=== PATIENT | male | born 1950 | race Caucasian/White ===

== ENCOUNTER 2018-08-10 17:53 | Emergency (ER) | payer MEDICARE ==
[2018-08-10] MEDS ORDERED: predniSONE 20 MG TAB ONE (18:15)
== END 2018-08-10 18:21 | disposition home or self-care (01) ==
LOC: ERS 17:53
DX: J32.9 Chronic sinusitis, unspecified (principal); E78.5 Hyperlipidemia, unspecified
CPT/HCPCS: 99283; J7506

== ENCOUNTER 2019-06-15 09:47 | Outpatient (CLI) | payer MEDICARE ==
--- NOTE | 2019-06-16 08:26 | MRI ---
MRI Pelvis W WO Con History: Elevated PSA Comparison: None. Findings: Multiplanar multisequence MRI of the pelvis was performed using prostate protocol. Exam was reviewed on an independent 3-D workstation. Prostate measures 5.4 x 5 x 5.7 cm for a volume of 78.3 cc. Peripheral zone: No abnormal foci of focal markedly hypointense signal on ADC or hyperintense signal on DWI. Transitional zone: Extending from the base to the mid gland from 1:00-3:00 is a 2.6 x 1.2 x 1 cm mass with heterogeneous signal intensity with obscured margins without markedly hypointense signal on ADC or markedly hyperintense signal on DWI. The ADC signal is moderately hyperintense and the DWI sig nal is mildly hyperintense. There is, however, focal areas of internal type III kinetics. This is annotated on the [employer] CAD software. Neurovascular bundles: Intact Prostatic capsule: Intact Lymph nodes: No pelvic adenopathy. Bones: On the T1 weighted imaging sequence there are no abnormal foci of marrow signal replacement. Intrapelvic soft tissues: Normal Impression: 1. PI-RADS Category 3: Indeterminant (clinically significant cancer equivocal). This is within the le ft transitional zone from the base to the mid gland from 1:00 - 3:00 as described in the findings section. Lesion is marked on the [employer] CAD software. 2. Enlarged prostate with volume of 78.3 cc. 3. Intact neurovascular bundles and prostatic capsule. 4. No adenopathy or abnormal marrow signal.
== END 2019-06-15 09:48 | disposition home or self-care (01) ==
LOC: TBSIIMAG 09:47
PROVIDERS: ATTEND Urology
DX: R97.20 Elevated prostate specific antigen [PSA] (principal); N40.0 Benign prostatic hyperplasia without lower urinary tract symptoms
CPT/HCPCS: 72197; 82565

== ENCOUNTER 2019-07-21 06:28 | Outpatient (CLI) | payer MEDICARE ==
--- NOTE | 2019-07-21 11:07 | RAD ---
EXAM: Chest Two Views 07/21/2019 11:05 AM HISTORY: Preop COMPARISON: None. FINDINGS: Heart: Normal in size and contour. Pulmonary vessels: Normal. Costophrenic angles: Clear. Lungs: No acute airspace consolidation. Pneumothorax: None. Osseous structures:Intact. Additional findings: None. IMPRESSION: No significant acute intrathoracic disease.
[2019-07-21 11:14] LABS: #Basophils 0.1 thou/uL (0.0-0.2); #Eosinphils 0.9 thou/uL (0.0-0.7); #Lymphocytes 1.6 thou/uL (1.20-3.40); #Monocytes 0.5 thou/uL (0.11-0.59); #Neutrophils 3.7 thou/uL (1.40-6.50); %Basophils 0.8 % (0.0-1.0); %Eosinophils 12.7 % (0.0-10.0); %Lymphocytes 23.8 % (21.0-51.0); %Monocytes 7.4 % (0.0-10.0); %Neutrophils 55.3 % (42.0-75.0); Hemoglobin 14.3 g/dL (14.0-18.0); Mean Corpuscular HGB CONC 34.1 g/dL (32.0-36.0); Mean Corpuscular Hemoglobin 31.1 pg (27.0-31.0); Mean Corpuscular Volume 91.2 fL (78.0-98.0); Mean Platelet Volume 8.4 fL (7.4-10.4); Platelet Count 213 thou/uL (130-400); RBC Distribution Width 12.1 % (11.5-14.5); Red Blood Cell (RBC) Count 4.61 mill/uL (4.70-6.10); White Blood Cell (WBC) Count 6.8 thou/uL (4.8-10.8)
[2019-07-21 11:22] LABS: Bacteria/HPF None Seen HPF (None Seen); Bilirubin Negative (Negative); Blood, Urine Negative (Negative); Clarity Clear (Clear); Glucose, Urine (Dipstick) Normal (Negative); Leukocyte Negative Leu/uL (Negative); Nitrite Negative (Negative); Protein, Urine (Dipstick) Negative (Neg-Trace); RBC/HPF None Seen HPF (0-3); Squamous Epithelial None Seen HPF (0-3); Urobilinogen Normal mg/dL (Less than 2); WBC/HPF 0-3 HPF (0-3)
[2019-07-21 11:31] LABS: Anion Gap 13 mmol/L (10-20); BUN (Urea Nitrogen) 14 mg/dL (8.4-25.7); Calc. Creatinine Clearance 0 mL/min (70-130); Calcium 9.5 mg/dL (7.8-10.44); Carbon Dioxide 27 mmol/L (23-31); Chloride 103 mmol/L (98-107); Estimated GFR-MDRD 71; Glucose 108 mg/dL (80-115); Potassium 4.5 mmol/L (3.5-5.1); Sodium 138 mmol/L (136-145)
[2019-07-21 11:37] LABS: PTT 28.7 SEC (22.9-36.1)
[2019-07-21 11:38] LABS: INR-International Normal Ratio 0.9; Prothrombin Time 12.2 SEC (12.0-14.7)
--- NOTE | 2019-07-22 17:56 | EKG ---
Test Reason : Blood Pressure : / mmHG Vent. Rate : 087 BPM Atrial Rate : 087 BPM P-R Int : 128 ms QRS Dur : 082 ms QT Int : 348 ms P-R-T Axes : 067 089 033 degrees QTc Int : 418 ms Sinus rhythm with Premature ventricular complexes or Fusion complexes Otherwise normal ECG No previous ECGs available Confirmed by Ben AVILES ([id number]) on 07/22/2019 5:55:40 PM Referred By: GIBSON Confirmed By:Ben AVILES
== END 2019-07-21 06:29 | disposition home or self-care (01) ==
LOC: LABBT 06:28
PROVIDERS: ATTEND Urology
DX: Z01.818 Encounter for other preprocedural examination (principal); N40.0 Benign prostatic hyperplasia without lower urinary tract symptoms
CPT/HCPCS: 71046; 80048; 81001; 85025; 85610; 85730; 93005; 93010

== ENCOUNTER 2019-07-28 06:26 | Day surgery (SDC) | payer MEDICARE ==
[2019-07-21 10:21] VITALS: BMI 23.6
[2019-07-28] MEDS ORDERED: cefTRIAXone\\ROCEPHIN 1 GM VIAL ONE (08:04)
[2019-07-28] MEDS ORDERED: Sodium Chloride 0.9% 100 ML ONE (08:11)
[2019-07-28] MEDS ORDERED: Lidocaine 2% PF 5 ML VIAL ONE (09:15)
[2019-07-28] MEDS ORDERED: Midazolam HCl 2 mg/2 ml Vial ONE (09:19)
[2019-07-28] MEDS ORDERED: Fentanyl 100 MCG/2 ML VIAL ONE (09:19)
[2019-07-28] MEDS ORDERED: Milrinone 10 MG/10 ML VIAL ONE (09:19)
[2019-07-28] MEDS ORDERED: Propofol 500 MG/50 ML VIAL ONE (09:19)
--- NOTE | 2019-07-28 11:36 | OP ---
DATE OF PROCEDURE: 07/28/2019 SERVICE: Urology. PREOPERATIVE DIAGNOSIS: Elevated PSA. POSTOPERATIVE DIAGNOSIS: Elevated PSA. PROCEDURE PERFORMED: MRI fusion transrectal ultrasound-guided prostate biopsy using the [employer]Nav system. INDICATION FOR PROCEDURE: Mr. Conn is a 69-year-old white male with elevated PSA, who has had two prior negative biopsies. His PSA has continued to rise. We got an MRI of the prostate, which demonstrated a BI-RADS 3 lesion. We elected to go for MRI fusion biopsy with all risks and benefits discussed. He has agreed to proceed forward. DESCRIPTION OF PROCEDURE: After identification of armband and verification of consent, the patient was brought back to the operating room, where he underwent total intravenous anesthesia. He was then left in the left lateral decubitus position and positioned into the UroNav system. Fusion process was carried out under the sedation until the prostate was well-matched with the MRI imaging. This did bring up a nice match between the MRI imaging and the ultrasound. Full measurements of the prostate demonstrated a 79.6 mL prostate volume, width being 5.3 cm, height being 5.0 cm, and length being 5.7 cm. Once fusion was carried out, biopsies were taken of the region of interest on the BI-RADS 3 lesion for a total of 8 cores taken, 5 were directly through the lesion and the remaining 3 were in the surrounding region. An additional 12-core standard biopsy template was taken, but all biopsies were taken on the anterior prostate by pushing the needle through the posterior aspect and then biopsy in the anterior aspect, since he has had 2 prior biopsies most likely of the posterior aspect of the prostate already. Upon completion, there was minimal bleeding noted. The ultrasound probe was removed. The patient was returned back to the supine position, awakened and taken to Day Stay for recovery. ESTIMATED BLOOD LOSS: Minimal. COMPLICATIONS: None. SPECIMENS: Prostate biopsies. RETAINED TUBES AND DRAINS: None. DISPOSITION: The patient will be discharged to home and follow up with me in approximately 2 to 3 weeks for a postop check and for biopsy results. Job ID: [id number]
== END 2019-07-28 14:30 | disposition home or self-care (01) ==
LOC: SDC 06:26
PROVIDERS: ATTEND Urology
PROC: 0VB03ZX Excision of Prostate, Percutaneous Approach, Diagnostic (ICD-10-PCS; principal; 2019-07-28)
DX: N40.1 Benign prostatic hyperplasia with lower urinary tract symptoms (principal); N13.8 Other obstructive and reflux uropathy; R35.1 Nocturia; R39.12 Poor urinary stream; E78.00 Pure hypercholesterolemia, unspecified; J30.2 Other seasonal allergic rhinitis; Z80.42 Family history of malignant neoplasm of prostate; Z79.51 Long term (current) use of inhaled steroids; Z79.899 Other long term (current) drug therapy; Z88.0 Allergy status to penicillin
CPT/HCPCS: 88305; J0696; J2001; J2250; J2260; J2704; J3010; J3490

== ENCOUNTER 2021-06-18 13:15 | Outpatient (CLI) | payer MEDICARE | END 2021-06-18 13:16 | disposition home or self-care (01) | LOC: BICULT 13:15 | PROVIDERS: ATTEND Physician Assistant | DX: L72.0 Epidermal cyst (principal); R91.8 Other nonspecific abnormal finding of lung field ==

== ENCOUNTER 2022-08-28 07:59 | Outpatient (CLI) | payer MEDICARE | END 2022-08-28 08:00 | disposition home or self-care (01) | LOC: BICCT 07:59 | PROVIDERS: ATTEND Psychiatry & Neurology Neurology | DX: H53.2 Diplopia (principal) | CPT/HCPCS: 71270 ==

== ENCOUNTER 2023-08-23 09:27 | Inpatient (IN) | payer BC, MEDICARE ==
[2023-08-23 09:47] LABS: #Basophils 0.1 thou/uL (0.0-0.2); #Eosinphils 0.3 thou/uL (0.0-0.7); #Monocytes 0.5 thou/uL (0.11-0.59); #Neutrophils 4.1 thou/uL (1.40-6.50); %Basophils 0.9 % (0.0-1.0); %Eosinophils 4.7 % (0.0-10.0); %Lymphocytes 26.6 % (21.0-51.0); %Monocytes 6.9 % (0.0-10.0); %Neutrophils 60.6 % (42.0-75.0); Hematocrit 43.3 % (42.0-52.0); Hemoglobin 14.8 g/dL (14.0-18.0); Mean Corpuscular HGB CONC 34.2 g/dL (32.0-36.0); Mean Corpuscular Hemoglobin 30.8 pg (27.0-31.0); Mean Corpuscular Volume 90.2 fl (78.0-98.0); Platelet Count 212 10x3/uL (130-400); White Blood Cell (WBC) Count 6.8 10x3/uL (4.8-10.8)
[2023-08-23 10:11] LABS: ALT (SGPT) 21 U/L (8-55); AST (SGOT) 17 U/L (5-34); Albumin 4.2 g/dL (3.4-4.8); Alkaline Phosphatase 71 U/L (40-110); Anion Gap 13 mmol/L (10-20); BUN (Urea Nitrogen) 13 mg/dL (8.4-25.7); Bilirubin, Total 0.6 mg/dL (0.2-1.2); Calc. Creatinine Clearance 0 mL/min (70-130); Calcium 9.5 mg/dL (7.8-10.44); Carbon Dioxide 28 mmol/L (23-31); Chloride 101 mmol/L (98-107); Estimated GFR 63; Globulin 2.9 g/dL (2.4-3.5); Glucose 125 mg/dL (83-110); Lipase 13 U/L (8-78); Potassium 4.2 mmol/L (3.5-5.1); Protein, Total 7.1 g/dL (5.8-8.1); Sodium 138 mmol/L (136-145)
[2023-08-23] MEDS ORDERED: Aspirin 325 MG TAB ONE (12:00)
[2023-08-23] MEDS ORDERED: Nitroglycerin 2% Ointment 1 INCH/1 GM Packet ONE (12:20)
[2023-08-23 13:12] LABS: SARS-CoV-2 NAA Rapid Test Not Detected (NotDetected)
[2023-08-23 14:04] LABS: Bacteria/HPF None Seen HPF (None Seen); Bilirubin Negative (Negative); Blood, Urine Negative (Negative); CAUTI Indications for Culture Alt mental st,lethar; Clarity Clear (Clear); Glucose, Urine (Dipstick) Normal (Negative); Ketone, Urine Negative (Negative); Leukocyte Negative Leu/uL (Negative); Nitrite Negative (Negative); Protein, Urine (Dipstick) Negative (Neg-Trace); RBC/HPF None Seen HPF (0-3); Specific Gravity, Urine 1.008 (1.002-1.036); Squamous Epithelial None Seen HPF (0-3); Urobilinogen Normal mg/dL (Less than 2); WBC/HPF 0-3 HPF (0-3)
[2023-08-23 14:06] LABS: Urine Culture Reflex No No
[2023-08-23] MEDS ORDERED: Acetaminophen 650 MG Suppository PR PRN (14:42)
[2023-08-23] MEDS ORDERED: Ondansetron PF 4 MG/2 ML Vial IVP PRN (14:42)
[2023-08-23] MEDS ORDERED: Ondansetron ODT 4 MG TAB PO PRN (14:42)
[2023-08-23] MEDS ORDERED: Acetaminophen 325 MG TAB PO PRN (14:42)
[2023-08-23 14:58] LABS: Troponin I 0.043 ng/mL (< 0.028)
[2023-08-23 15:24] VITALS: BMI 24.3
[2023-08-23 18:15] LABS: Troponin I 0.056 ng/mL (< 0.028)
[2023-08-24] MEDS ORDERED: Nitroglycerin 0.4 MG TAB (25 Tab Bottle) SL PRN (06:02)
[2023-08-24 06:58] LABS: #Basophils 0.1 thou/uL (0.0-0.2); #Eosinphils 0.3 thou/uL (0.0-0.7); #Monocytes 0.6 thou/uL (0.11-0.59); #Neutrophils 4.9 thou/uL (1.40-6.50); %Basophils 0.6 % (0.0-1.0); %Eosinophils 4.3 % (0.0-10.0); %Lymphocytes 25.1 % (21.0-51.0); %Monocytes 7.8 % (0.0-10.0); %Neutrophils 61.9 % (42.0-75.0); Hematocrit 41.2 % (42.0-52.0); Hemoglobin 14.1 g/dL (14.0-18.0); Mean Corpuscular HGB CONC 34.2 g/dL (32.0-36.0); Mean Corpuscular Hemoglobin 31.2 pg (27.0-31.0); Mean Corpuscular Volume 91.2 fl (78.0-98.0); Mean Platelet Volume 11.3 fL (7.4-10.4); Platelet Count 193 10x3/uL (130-400); RBC Distribution Width 13.2 % (11.5-14.5); Red Blood Cell (RBC) Count 4.52 mill/uL (4.70-6.10); White Blood Cell (WBC) Count 7.9 10x3/uL (4.8-10.8)
[2023-08-24 07:13] LABS: Anion Gap 10 mmol/L (10-20); BUN (Urea Nitrogen) 14 mg/dL (8.4-25.7); Calc. Creatinine Clearance 69 mL/min (70-130); Carbon Dioxide 25 mmol/L (23-31); Chloride 104 mmol/L (98-107); Estimated GFR 76; Glucose 98 mg/dL (83-110); Potassium 4.3 mmol/L (3.5-5.1); Sodium 135 mmol/L (136-145)
[2023-08-24] MEDS ORDERED: hydrALAZINE 20 MG/ML VIAL SLOW IVP PRN (12:02)
[2023-08-24] MEDS ORDERED: Communication Order-Pharmacy FS SCH (15:15)
[2023-08-24] MEDS ORDERED: Enoxaparin 80 MG (0.8 mL) SYRINGE SC SCH (15:15)
[2023-08-24] MEDS ORDERED: Nitroglycerin 2% Ointment 1 INCH/1 GM Packet TOP SCH (16:45)
[2023-08-24 18:57] LABS: #Basophils 0.1 thou/uL (0.0-0.2); #Eosinphils 0.3 thou/uL (0.0-0.7); #Monocytes 0.9 thou/uL (0.11-0.59); #Neutrophils 7.4 thou/uL (1.40-6.50); %Basophils 0.6 % (0.0-1.0); %Eosinophils 2.3 % (0.0-10.0); %Lymphocytes 29.5 % (21.0-51.0); %Monocytes 7.3 % (0.0-10.0); %Neutrophils 60.1 % (42.0-75.0); Hematocrit 41.4 % (42.0-52.0); Hemoglobin 14.1 g/dL (14.0-18.0); Mean Corpuscular HGB CONC 34.1 g/dL (32.0-36.0); Mean Corpuscular Hemoglobin 31.2 pg (27.0-31.0); Mean Corpuscular Volume 91.6 fl (78.0-98.0); Mean Platelet Volume 11.2 fL (7.4-10.4); Platelet Count 216 10x3/uL (130-400); RBC Distribution Width 12.9 % (11.5-14.5); Red Blood Cell (RBC) Count 4.52 mill/uL (4.70-6.10); White Blood Cell (WBC) Count 12.4 10x3/uL (4.8-10.8)
[2023-08-24] MEDS ORDERED: Sodium Chloride 0.9% 500 ML IV SCH (19:00)
[2023-08-24 19:25] LABS: Anion Gap 13 mmol/L (10-20); BUN (Urea Nitrogen) 13 mg/dL (8.4-25.7); Calc. Creatinine Clearance 64 mL/min (70-130); Carbon Dioxide 21 mmol/L (23-31); Chloride 105 mmol/L (98-107); Sodium 135 mmol/L (136-145); Troponin I 0.035 ng/mL (< 0.028)
[2023-08-24 19:26] LABS: ALT (SGPT) 17 U/L (8-55); AST (SGOT) 14 U/L (5-34); Albumin 4.1 g/dL (3.4-4.8); Alkaline Phosphatase 75 U/L (40-110); Bilirubin, Total 0.9 mg/dL (0.2-1.2); Calcium 8.8 mg/dL (7.8-10.44); Estimated GFR 71; Globulin 2.3 g/dL (2.4-3.5); Glucose 117 mg/dL (83-110); Magnesium 1.9 mg/dL (1.6-2.6); Protein, Total 6.4 g/dL (5.8-8.1)
[2023-08-24 22:33] LABS: Lactic Acid 1.8 mmol/L (0.5-2.2)
[2023-08-25] MEDS ORDERED: fentaNYL 50 mcg/mL 1 mL Vial ONE (06:17)
[2023-08-25] MEDS ORDERED: Midazolam HCl 2 mg/2 ml Vial ONE (06:17)
[2023-08-25] MEDS ORDERED: Nitroglycerin 50 MG/250 ML BOT 250 ML ONE (06:18)
[2023-08-25] MEDS ORDERED: Heparin 10,000 UNITS/ 10 ML VIAL ONE (06:18)
[2023-08-25] MEDS ORDERED: Verapamil 5 MG/2 ML VIAL ONE (06:48)
[2023-08-25 07:06] LABS: #Basophils 0.1 thou/uL (0.0-0.2); #Eosinphils 0.2 thou/uL (0.0-0.7); #Monocytes 0.5 thou/uL (0.11-0.59); #Neutrophils 4.6 thou/uL (1.40-6.50); %Basophils 0.7 % (0.0-1.0); %Eosinophils 2.8 % (0.0-10.0); %Lymphocytes 25.2 % (21.0-51.0); Hematocrit 41.3 % (42.0-52.0); Mean Corpuscular HGB CONC 33.9 g/dL (32.0-36.0); Mean Corpuscular Hemoglobin 30.6 pg (27.0-31.0); Mean Corpuscular Volume 90.4 fl (78.0-98.0); Mean Platelet Volume 11.6 fL (7.4-10.4); Platelet Count 203 10x3/uL (130-400); RBC Distribution Width 13.2 % (11.5-14.5); Red Blood Cell (RBC) Count 4.57 mill/uL (4.70-6.10); White Blood Cell (WBC) Count 7.2 10x3/uL (4.8-10.8)
[2023-08-25 07:38] LABS: Anion Gap 14 mmol/L (10-20); BUN (Urea Nitrogen) 14 mg/dL (8.4-25.7); Calc. Creatinine Clearance 65 mL/min (70-130); Calcium 8.9 mg/dL (7.8-10.44); Carbon Dioxide 21 mmol/L (23-31); Chloride 105 mmol/L (98-107); Estimated GFR 71; Glucose 121 mg/dL (83-110); Potassium 3.9 mmol/L (3.5-5.1); Sodium 136 mmol/L (136-145)
[2023-08-25] MEDS ORDERED: TICAGRELOR 90 MG TABLET ONE (07:59)
[2023-08-25] MEDS: Nitroglycerin 2% Ointment 1 INCH/1 GM Packet TOP SCH ×2 (10:00→20:28)
[2023-08-25] MEDS ORDERED: Iopamidol 370 76% 100 ML VIAL ONE (11:01)
[2023-08-25] MEDS ORDERED: Acetaminophen/Codeine 30-300mg Tablet PO PRN (13:28)
[2023-08-25] MEDS ORDERED: Milk Of Magnesia 30 ML UDCUP PO PRN (13:28)
[2023-08-25] MEDS ORDERED: TICAGRELOR 90 MG TABLET PO SCH (13:45)
[2023-08-25] MEDS ORDERED: Aspirin Chewable 81 MG TAB PO SCH (13:45)
[2023-08-25] MEDS ORDERED: Metoprolol Tartrate 25 MG TAB PO SCH (13:45)
[2023-08-25] MEDS ORDERED: Lisinopril 2.5 MG TAB PO SCH (13:45)
[2023-08-25] MEDS: TICAGRELOR 90 MG TABLET PO SCH (20:26)
[2023-08-25] MEDS: Atorvastatin Calcium 40 MG TAB PO SCH (20:27)
[2023-08-25] MEDS: Metoprolol Tartrate 25 MG TAB PO SCH (20:27)
[2023-08-26 05:47] LABS: #Eosinphils 0.3 thou/uL (0.0-0.7); #Monocytes 1.1 thou/uL (0.11-0.59); #Neutrophils 8.1 thou/uL (1.40-6.50); %Basophils 0.4 % (0.0-1.0); %Eosinophils 2.9 % (0.0-10.0); %Lymphocytes 14.2 % (21.0-51.0); %Monocytes 9.9 % (0.0-10.0); %Neutrophils 72.2 % (42.0-75.0); Hematocrit 40.8 % (42.0-52.0); Hemoglobin 13.9 g/dL (14.0-18.0); Mean Corpuscular HGB CONC 34.1 g/dL (32.0-36.0); Mean Corpuscular Hemoglobin 30.9 pg (27.0-31.0); Mean Corpuscular Volume 90.7 fl (78.0-98.0); Mean Platelet Volume 11.7 fL (7.4-10.4); Platelet Count 194 10x3/uL (130-400); RBC Distribution Width 13.2 % (11.5-14.5); White Blood Cell (WBC) Count 11.2 10x3/uL (4.8-10.8)
[2023-08-26 06:30] LABS: ALT (SGPT) 16 U/L (8-55); AST (SGOT) 17 U/L (5-34); Albumin 3.8 g/dL (3.4-4.8); Alkaline Phosphatase 68 U/L (40-110); Anion Gap 11 mmol/L (10-20); BUN (Urea Nitrogen) 13 mg/dL (8.4-25.7); Bilirubin, Total 1.4 mg/dL (0.2-1.2); Calc. Creatinine Clearance 61 mL/min (70-130); Calcium 8.8 mg/dL (7.8-10.44); Carbon Dioxide 23 mmol/L (23-31); Chloride 102 mmol/L (98-107); Estimated GFR 66; Globulin 2.7 g/dL (2.4-3.5); Glucose 102 mg/dL (83-110); Potassium 3.8 mmol/L (3.5-5.1); Protein, Total 6.5 g/dL (5.8-8.1); Sodium 132 mmol/L (136-145)
[2023-08-26] MEDS: Aspirin Chewable 81 MG TAB PO SCH (08:48)
[2023-08-26] MEDS: Metoprolol Tartrate 25 MG TAB PO SCH ×2 (08:48→20:24)
[2023-08-26] MEDS: Lisinopril 2.5 MG TAB PO SCH (08:48)
[2023-08-26] MEDS: TICAGRELOR 90 MG TABLET PO SCH ×2 (08:50→20:23)
[2023-08-26] MEDS: Nitroglycerin 2% Ointment 1 INCH/1 GM Packet TOP SCH ×2 (08:51→20:17)
[2023-08-26] MEDS: Atorvastatin Calcium 40 MG TAB PO SCH (20:24)
[2023-08-27 03:49] VITALS: TEMP 97.7
[2023-08-27] MEDS: Aspirin Chewable 81 MG TAB PO SCH (08:38)
[2023-08-27] MEDS: Nitroglycerin 2% Ointment 1 INCH/1 GM Packet TOP SCH (08:38)
[2023-08-27] MEDS: Lisinopril 2.5 MG TAB PO SCH (08:39)
[2023-08-27] MEDS: TICAGRELOR 90 MG TABLET PO SCH (08:39)
[2023-08-27] MEDS: Metoprolol Tartrate 25 MG TAB PO SCH (08:39)
[2023-08-27 13:59] VITALS: BP 134/84
== END 2023-08-27 15:39 | disposition home or self-care (01) | DRG 322 ==
LOC: ERS 09:27 → ERHOLD 13:39 → 2SW 21:42 → OBSVTOIN 08-24 15:56
PROVIDERS: ADMIT Student in an Organized Health Care Education/Training Program; ATTEND Hospitalist
PROC: 4A023N7 Measurement of Cardiac Sampling and Pressure, Left Heart, Percutaneous Approach (ICD-10-PCS; principal; 2023-08-25)
PROC: 027034Z Dilation of Coronary Artery, One Artery with Drug-eluting Intraluminal Device, Percutaneous Approach (ICD-10-PCS; 2023-08-25)
PROC: B2111ZZ Fluoroscopy of Multiple Coronary Arteries using Low Osmolar Contrast (ICD-10-PCS; 2023-08-25)
PROC: B2151ZZ Fluoroscopy of Left Heart using Low Osmolar Contrast (ICD-10-PCS; 2023-08-25)
DX: I21.4 Non-ST elevation (NSTEMI) myocardial infarction (principal); E78.5 Hyperlipidemia, unspecified; E78.00 Pure hypercholesterolemia, unspecified; R53.83 Other fatigue; I25.10 Atherosclerotic heart disease of native coronary artery without angina pectoris; N40.0 Benign prostatic hyperplasia without lower urinary tract symptoms; I11.9 Hypertensive heart disease without heart failure; I49.3 Ventricular premature depolarization; Z88.0 Allergy status to penicillin; Z98.890 Other specified postprocedural states; Z79.899 Other long term (current) drug therapy; Z79.82 Long term (current) use of aspirin; Z11.52 Encounter for screening for COVID-19
CPT/HCPCS: 36415; 36416; 71045; 80048; 80053; 81001; 83605; 83690; 83735; 83880; 84484; 85025; 85347; 85379; 92928; 93005; 93010; 93306; 93458; 93798; C1725; C1769; C1874; C1887; C1894; C9600; J0360; J1644; J1650; J2250; J3010; Q9967

== ENCOUNTER 2023-09-18 09:05 | Outpatient (CLI) | payer MEDICARE ==
[2023-09-18 10:22] LABS: #Basophils 0.1 10x3/uL (0.0-0.2); #Eosinphils 0.4 10x3/uL (0.0-0.5); #Monocytes 0.7 10x3/uL (0.0-1.1); %Basophils 0.9 % (0.0-2.0); %Eosinophils 5.1 % (0.0-6.0); %Lymphocytes 20.4 % (18.0-47.0); %Monocytes 9.3 % (0.0-10.0); %Neutrophils 63.9 % (40.0-75.0); Hemoglobin 14.5 g/dL (13.5-17.5); Mean Corpuscular HGB CONC 34.5 g/dL (32.0-36.0); Mean Corpuscular Hemoglobin 31.5 pg (27.0-33.0); Mean Corpuscular Volume 91.1 fl (81.2-95.1); Mean Platelet Volume 11.2 fl (7.4-10.4); Platelet Count 200 10x3/uL (150-450); RBC Distribution Width 13.1 % (11.5-14.5); Red Blood Cell (RBC) Count 4.61 10x6/uL (4.32-5.72); White Blood Cell (WBC) Count 7.8 10x3/uL (3.5-10.5)
[2023-09-18 10:27] LABS: ALT (SGPT) 59 U/L (8-55); AST (SGOT) 25 U/L (5-34); Albumin 4.6 g/dL (3.4-4.8); Alkaline Phosphatase 82 U/L (40-110); Anion Gap 11 mmol/L (10-20); BUN (Urea Nitrogen) 17 mg/dL (8.4-25.7); Bilirubin, Total 0.7 mg/dL (0.2-1.2); Calc. Creatinine Clearance 0 mL/min (70-130); Calcium 9.4 mg/dL (7.8-10.44); Carbon Dioxide 27 mmol/L (23-31); Chloride 106 mmol/L (98-107); Estimated GFR 62; Globulin 2.5 g/dL (2.4-3.5); Glucose 115 mg/dL (83-110); Potassium 5.1 mmol/L (3.5-5.1); Protein, Total 7.1 g/dL (5.8-8.1); Sodium 139 mmol/L (136-145)
== END 2023-09-18 09:06 | disposition home or self-care (01) ==
LOC: LABBT 09:05
PROVIDERS: ATTEND Internal Medicine Cardiovascular Disease
DX: Z01.812 Encounter for preprocedural laboratory examination (principal); I25.10 Atherosclerotic heart disease of native coronary artery without angina pectoris
CPT/HCPCS: 80053; 85025

== ENCOUNTER 2023-09-22 09:46 | Day surgery (SDC) | payer MEDICARE ==
[2023-09-18 10:00] VITALS: BMI 23.5
[2023-09-22] MEDS ORDERED: Iopamidol 370 76% 100 ML VIAL ONE (10:57)
[2023-09-22] MEDS ORDERED: fentaNYL 50 mcg/mL 1 mL Vial ONE (11:27)
[2023-09-22] MEDS ORDERED: Verapamil 5 MG/2 ML VIAL ONE (11:27)
[2023-09-22] MEDS ORDERED: Heparin 10,000 UNITS/ 10 ML VIAL ONE (11:27)
[2023-09-22] MEDS ORDERED: Midazolam HCl 2 mg/2 ml Vial ONE (11:27)
[2023-09-22] MEDS ORDERED: Nitroglycerin 50 MG/250 ML BOT 250 ML ONE (11:28)
[2023-09-22] MEDS ORDERED: Nitroglycerin 0.4 MG TAB (25 Tab Bottle) SL PRN (15:15)
[2023-09-22] MEDS ORDERED: Sodium Chloride 0.9% 1,000 ML IV SCH (15:15)
[2023-09-22] MEDS ORDERED: Morphine 2 MG/ML VIAL SLOW IVP PRN (15:15)
[2023-09-22] MEDS ORDERED: Morphine 4 MG/ML VIAL SLOW IVP PRN (15:15)
[2023-09-22] MEDS ORDERED: TICAGRELOR 90 MG TABLET PO SCH (15:30)
[2023-09-23] MEDS ORDERED: Aspirin Chewable 81 MG TAB PO SCH (09:00)
[2023-09-23] MEDS ORDERED: TICAGRELOR 90 MG TABLET PO SCH (09:00)
== END 2023-09-22 18:00 | disposition home or self-care (01) ==
LOC: SDC 09:46
PROVIDERS: ATTEND Internal Medicine Cardiovascular Disease
PROC: 4A023N7 Measurement of Cardiac Sampling and Pressure, Left Heart, Percutaneous Approach (ICD-10-PCS; principal; 2023-09-22)
PROC: B200YZZ Plain Radiography of Single Coronary Artery using Other Contrast (ICD-10-PCS; 2023-09-22)
DX: I25.119 Atherosclerotic heart disease of native coronary artery with unspecified angina pectoris (principal); E78.5 Hyperlipidemia, unspecified; I10 Essential (primary) hypertension; I21.4 Non-ST elevation (NSTEMI) myocardial infarction; Z98.890 Other specified postprocedural states; Z79.82 Long term (current) use of aspirin; Z79.899 Other long term (current) drug therapy; Z88.0 Allergy status to penicillin
CPT/HCPCS: 85347; 93005; 93454; C1769 ×2; C1874; C1887; C1894; C9600; J3010; 92928; J1644; J2250; J7050; Q9967